=== PATIENT | male | born 1970 | race Caucasian/White ===

== ENCOUNTER 2019-04-29 05:55 | Day surgery (SDC) | payer BC ==
[2019-04-29] MEDS ORDERED: Lactated Ringers 1,000 ML IV SCH (06:30)
[2019-04-29] MEDS ORDERED: DIPRIVAN 200 MG/20 ML IV ONE ×3 (07:44→08:11)
[2019-04-29] MEDS ORDERED: Ketamine HCl 50 MG/ML ONE (07:48)
[2019-04-29 08:59] VITALS: BP 158/98; PULSE 86; O2SAT 94
--- NOTE | 2019-04-29 11:37 | OP ---
SURGERY DATE/TIME: 04/29/2019 0754 PREOPERATIVE DIAGNOSIS: Screening exam. POSTOPERATIVE DIAGNOSIS: Small polyp in the proximal transverse colon. PROCEDURE: Colonoscopy with cold forceps biopsy. SURGEON: Dr. Bernal. ANESTHESIA: MAC. Medications given by anesthesia department. HISTORY: The patient is a 49 year-old white male presenting now for screening colonoscopy. He was apprised of the risks of the procedure including the risk of perforation, phlebitis, untoward reaction to medication, bleeding and missed lesions. The patient verbalized his understanding and desired to have the procedure performed. DESCRIPTION OF PROCEDURE: The patient was given the medications by the anesthesia department. He had continuous pulse oximetry, ECG monitoring, intermittent blood pressure monitoring and tidal CO2 monitoring during the examination. He was placed in the left lateral decubitus position. A digital rectal examination was performed and revealed normal anal sphincter tone, no masses and normal prostate. The flexible Olympus pediatric colonoscope was used to intubate the rectum. A view of the colon was developed sequentially to the cecum. Upon insertion and withdrawal was noted a small polyp in the proximal transverse colon measuring approximately 0.5 cm in size this is destroyed using one pass of the cold biopsy forceps. Upon insertion and withdrawal including a retroflex view in the rectum, no other mucosal lesions were encountered. The scope was removed from the patient who tolerated the procedure well and was sent back to OP recovery in good condition. The prep was noted to be fair to good.
== END 2019-04-29 09:10 | disposition home or self-care (01) ==
LOC: SDC 05:55
PROVIDERS: ATTEND Family Medicine
DX: Z12.11 Encounter for screening for malignant neoplasm of colon (principal); D12.3 Benign neoplasm of transverse colon
CPT/HCPCS: J2704

== ENCOUNTER 2023-03-05 00:55 | Emergency (ER) | payer BC, OTHER ==
[2023-03-05] MEDS ORDERED: KEFLEX 500 MG PO ONE (02:04)
--- NOTE | 2023-03-05 02:05 | ERPHSYRPT ---
- History of Present Illness Time Seen by Provider: 03/05/23 01:32 Source: patient Exam Limitations: no limitations Physician History: 53 years old right-handed dominant male presented in the ER with chief complaint of right hand medial aspect laceration after he accidentally tripped and fell at home prior to arrival. There was bleeding initially but stopped with applying pressure. Patient has no difficulty movements of the fingers. No numbness or tingling in the fingers. Up-to-date with tetanus. No injury anywhere else. Complaining of mild to moderate pain with palpation in the area. Allergies/Adverse Reactions: erythromycin base Allergy (Unknown, Verified 03/05/23 01:59) Penicillins Allergy (Unknown, Verified 03/05/23 01:59) Sulfa (Sulfonamide Antibiotics) Allergy (Unknown, Verified 03/05/23 01:59) Home Medications: Atorvastatin Calcium [Lipitor] 40 mg PO DAILY 04/12/19 [History] Citalopram Hydrobromide [ceLEXa] 40 mg PO DAILY 04/12/19 [History] Omeprazole 40 mg PO DAILY 04/12/19 [History] - Review of Systems Constitutional: No Symptoms Ears, Nose, & Throat: No Symptoms Respiratory: No Symptoms Cardiac: No Symptoms Abdominal/Gastrointestinal: No Symptoms Musculoskeletal: Injury Skin: Skin Lesions Neurological: No Symptoms Endocrine: No Symptoms - Past Medical History Pertinent Past Medical History: Yes Neurological History: No Pertinent History ENT History: No Pertinent History Cardiac History: High Cholesterol Respiratory History: No Pertinent History Endocrine Medical History: No Pertinent History Musculoskeletal History: No Pertinent History GI Medical History: GERD History: No Pertinent History Psycho-Social History: No Pertinent History Male Reproductive Disorders: No Pertinent History - Past Surgical History Past Surgical History: No Neuro Surgical History: No Pertinent History Cardiac: No Pertinent History Respiratory: No Pertinent History Gastrointestinal: No Pertinent History Genitourinary: No Pertinent History Musculoskeletal: Other Male Surgical History: No Pertinent History Other Surgical History: finger - Social History Smoking Status: Never smoker Exposure to second hand smoke: No Drug Use: none - Nursing Vital Signs Nursing Vital Signs: Initial Vital Signs Temperature 98.7 F 03/05/23 01:45 Pulse Rate 67 03/05/23 01:45 Respiratory Rate 14 03/05/23 01:45 Blood Pressure 135/93 03/05/23 01:45 O2 Sat by Pulse Oximetry 96 03/05/23 01:45 Pain Scale Pain Intensity 5 - Physical Exam General Appearance: no apparent distress, alert Eye Exam: PERRL/EOMI Neck Exam: normal inspection, full range of motion Respiratory Exam: normal breath sounds, lungs clear Cardiovascular Exam: regular rate/rhythm, normal heart sounds Extremity Exam: normal range of motion, lacerations (L-shaped laceration right hand medial aspect on the palmar side 3 x 2.5 cm. Deep. No active bleeding or spurting. Intact distal neurovascular. No obvious visible tendon cut.) Neurologic Exam: alert, oriented x 3, cooperative Skin Exam: normal color SpO2 Interpretation: normal SpO2: 95 O2 Delivery: Room Air Procedures - Laceration/Wound Repair Right Hand Time of Procedure: 02:02 Wound Location: Right Wound Length (cm): 7 Wound's Depth, Shape: into muscle Wound Explored: clean Irrigated: Yes Hibiclens Prep: Yes Anesthesia: 1% Lidocaine Volume Anesthetic (ccs): 5 Suture Size/Type: 4-0 Number of Sutures: 10 Layer Closure?: No Sterile Dressing Applied?: Yes Splint Applied?: Yes Type of Splint Applied: Premade Sling Applied?: Yes Ordered Tests: Medication Summary Discontinued Medications Generic Name Dose Route Start Last Admin Trade Name Freq PRN Reason Stop Dose Admin Bacitracin Zinc 0.9 each 03/05/23 02:36 03/05/23 02:38 Bacitracin Packet 1 Each Pckt TP 03/05/23 02:37 0.9 each STAT ONE Administration Bacitracin Zinc Confirm 03/05/23 02:37 Bacitracin Packet 1 Each Pckt Administered 03/05/23 02:38 Dose 1 each .ROUTE .STK-MED ONE Cephalexin HCl 500 mg 03/05/23 02:04 03/05/23 02:38 Cephalexin Mh500 Mg Capsule PO 03/05/23 02:05 500 mg STAT ONE Administration Cephalexin HCl Confirm 03/05/23 02:37 Cephalexin Mh500 Mg Capsule Administered 03/05/23 02:38 Dose 500 mg .ROUTE .STK-MED ONE Lidocaine HCl Confirm 03/05/23 02:08 Lidocaine Hcl 1% 20 Ml Mdv 20 Ml Ml Administered 03/05/23 02:09 Dose 5 ml .ROUTE .STK-MED ONE - Progress Progress: improved Progress Note: 03/05/23 02:33 53-year-old [id number] male was evaluated in the ER for right hand laceration after he fell prior to arrival. Patient is up-to-date with tetanus. Distal neurovascular intact. Laceration is repaired. Will give Keflex prophylactically. Placed in a splint. Outpatient follow-up recommended. Discussed signs symptoms of worsening needing return to ER which he seems understanding. Counseled pt/family regarding: diagnosis, need for follow-up, rad results Medical Desision Making - Risk of complications The pt has a mod risk of morbidity or mortality based on: Need for minor surgical intervention in patient with know risk factors - Departure Departure Disposition: Home Clinical Impression: Hand laceration Condition: Stable Critical Care Time: No Referrals: FRANNY BAXTER NP [Primary Care Provider] - Follow up with PCP 1 day Instructions: Laceration Repair With Stitches (DC) Additional Instructions: Take Tylenol/ibuprofen as needed for pain. Follow-up with primary care for reevaluation. Suture removal in 2 weeks. Return to ER for intractable pain swelling redness discharge, difficulty movements of the fingers etc. Prescriptions: Ibuprofen 600 mg PO Q6HPRN PRN 10 Days #20 tablet PRN Reason: Pain Cephalexin Mh 500 mg [Keflex 500 mg] 500 mg PO TID #21 cap
[2023-03-05] MEDS ORDERED: XYLOCAINE 1% HCL 20 ML MDV ONE (02:08)
[2023-03-05 02:15] VITALS: RESP 14; TEMP 98.7
[2023-03-05 02:36] VITALS: BP 138/88; PULSE 92
[2023-03-05] MEDS ORDERED: BACIGUENT PACKET TP ONE (02:36)
[2023-03-05] MEDS ORDERED: BACIGUENT PACKET ONE (02:37)
[2023-03-05] MEDS ORDERED: KEFLEX 500 MG ONE (02:37)
[2023-03-05 02:53] VITALS: O2SAT 95
== END 2023-03-05 02:55 | disposition home or self-care (01) ==
LOC: ED 00:55
DX: S61.411A Laceration without foreign body of right hand, initial encounter (principal); W01.0XXA Fall on same level from slipping, tripping and stumbling without subsequent striking against object, initial encounter; E78.5 Hyperlipidemia, unspecified; Z79.899 Other long term (current) drug therapy
CPT/HCPCS: 12002; 99282; A4570; A9270-GY

== ENCOUNTER 2024-03-01 06:10 | Day surgery (SDC) | payer BC ==
[2024-03-01 06:24] VITALS: RESP 18
[2024-03-01 06:42] LABS: BASOPHIL % 0.5 % (0.2-1.2); Basophil (Absolute #) 0.03 x10^3/uL (0.01-0.08); Eosinophil % 1.5 % (0.8-7.0); Eosinophil (Absolute #) 0.09 x10^3/uL (0.04-0.54); Hematocrit 44.9 % (40.1-51.0); Hemoglobin 15.4 g/dL (13.7-17.5); IMMATURE GRAN # 0.05 x10^3u/L (0.001-0.031); IMMATURE GRAN % 0.8 % (0.001-0.429); Lymphocyte (Absolute #) 1.78 x10^3/uL (1.32-3.57); Lymphocytes % 28.8 % (21.8-53.1); Mean Corpuscular Hemoglobin 30.2 pg (25.7-32.2); Mean Corpuscular Hgb Concent. 34.3 g/dL (32.3-36.5); Mean Platelet Volume 8.9 fL (9.4-12.4); Monocyte (Absolute #) 0.63 x10^3/uL (0.30-0.82); Monocytes % 10.2 % (5.3-12.2); Neutrophil % 58.2 % (34.0-67.9); Platelet Count 266 x10^3/uL (163-337); Red Cell Distribution Width 12.8 % (11.6-14.4); White Blood Count 6.2 x10^3/uL (4.23-9.07)
[2024-03-01 07:07] LABS: ANION GAP 14.6 MEQ/L (5-15); Calcium 8.8 mg/dL (8.4-10.2); Creatinine 1 0.93 mg/dL (0.66-1.25); EST GLOMERULAR FILTRATION RATE 96.4 ML/MIN; Potassium 3.9 mmol/L (3.5-5.1)
[2024-03-01] MEDS ORDERED: DIPRIVAN 200 MG/20 ML IV ONE ×2 (07:40→08:15)
[2024-03-01] MEDS ORDERED: Xylocaine-Mpf 2% 5 Ml Vial ONE (08:15)
[2024-03-01 08:20] VITALS: TEMP 97.6
[2024-03-01 08:35] VITALS: BP 119/85; PULSE 70; O2SAT 98
--- NOTE | 2024-03-02 15:54 | OP ---
SURGERY DATE/TIME: 03/01/2024 0730 - PREOPERATIVE DIAGNOSES: 1) Reflux, vomiting every morning. 2) History of small colon polyp. PROCEDURE: Esophagogastroduodenoscopy and colonoscopy. SURGEON: Luis Bernal MD. ANESTHESIA: Medications were given by the anesthesia department. INDICATIONS: The patient is a 54-year-old white male patient who has been having trouble with reflux, particularly vomiting each morning. He reports he has had hoarseness over the past 6 weeks, but it has been getting somewhat better. The patient also has a previous history of a small polyp in the colon approximately 5 years ago. The patient was felt the need to have endoscopic evaluation at this point. He was appraised of the risks of the procedure including risk of perforation, phlebitis, untoward reaction to medication, bleeding, and missed lesions. The patient verbalized his understanding and desire to have procedure performed. DESCRIPTION OF PROCEDURE AND FINDINGS: The patient was given medication by the anesthesia department. He had continuous pulse oximetry, ECG monitoring, and intermittent blood pressure monitoring during the examination. He was placed in the left lateral decubitus position. A bite block was placed, and a flexible Olympus gastroscope was used to intubate the oropharynx. A quick look at the vocal cords showed no significant abnormality. The esophagus was entered with ease and was normal to the EG junction where there appeared to be small hiatal hernia. No strictures were noted. The scope was passed into the stomach, where normal gastric rugal folds were seen and each distended nicely with insufflation of air. The scope was passed along the greater curvature of the stomach to the antrum. The pylorus was encountered and intubated. The duodenum was inspected and found to be normal. Scope was withdrawn towards the stomach. A retroflexed view was obtained of the lesser curvature, fundus, and cardia regions of the stomach, and these appeared to be essentially normal. The scope was then removed from the patient with careful inspection upon withdrawal, no other mucosal lesions being encountered, and the scope was removed from the patient. Next, a digital rectal examination was performed and revealed normal anal sphincter tone, no masses, and a normal prostate. The flexible Olympus videocolonoscope was used to intubate the rectum. A view of the colon was developed sequentially to the cecum. Upon insertion and withdrawal, including retroflexed view in the rectum, no mucosal lesions were noted. The scope was removed. The patient tolerated the procedure well and was sent back to outpatient recovery in good condition. The prep was noted to be fair.
== END 2024-03-01 08:43 | disposition home or self-care (01) ==
LOC: SDC 06:10
PROVIDERS: ATTEND Family Medicine
DX: K21.9 Gastro-esophageal reflux disease without esophagitis (principal); R11.10 Vomiting, unspecified; Z09 Encounter for follow-up examination after completed treatment for conditions other than malignant neoplasm; Z86.0100 Personal history of colon polyps, unspecified; K44.9 Diaphragmatic hernia without obstruction or gangrene
CPT/HCPCS: 36415; 80048; 85025; 93005; J2704